=== PATIENT | female | born 1980 | race Caucasian/White ===

== ENCOUNTER 2020-01-21 02:20 | Emergency (ER) | payer MEDICAID, OTHER ==
[~2020-01-21] VITALS: Ht 170.2 cm; Wt 64.4 kg
--- NOTE | 2020-01-21 02:49 | NUR ---
Patient discharged to home in stable conditon. Written and verbal after care instructions given. Patient verbalizes understanding of instructions. Walked out of ER with no distress noted
== END 2020-01-21 02:53 | disposition home or self-care (01) ==
LOC: ER 02:24
DX: E06.9 Thyroiditis, unspecified (principal); R50.9 Fever, unspecified; Z87.09 Personal history of other diseases of the respiratory system
CPT/HCPCS: A4663